=== PATIENT | male | born 2000 | race Caucasian/White ===

== ENCOUNTER → 2025-05-09 08:10 | Outpatient (REF) | payer OTHER, SELFPAY | LOC: RAD 08:10 | PROVIDERS: ATTENDING PHYSICIAN General Practice; FAMILY PHYSICIAN Physician Assistant | DX: M25.511 Pain in right shoulder (principal); S29.011A Strain of muscle and tendon of front wall of thorax, initial encounter | CPT/HCPCS: 78803; A9503 ==

== ENCOUNTER → 2025-07-31 11:11 | Outpatient (REF) | payer OTHER, SELFPAY | LOC: PAVMRI 11:11 | PROVIDERS: ATTENDING PHYSICIAN Physician Assistant; FAMILY PHYSICIAN Physician Assistant | DX: M25.561 Pain in right knee (principal) | CPT/HCPCS: 73721 ==